=== PATIENT | male | born 1985 ===

== ENCOUNTER 2016-12-28 03:26 | Observation (INO) | payer OTHER ==
[~2016-12-28] VITALS: Ht 167.6 cm; Wt 63.5 kg
[2016-12-28] VITALS (8 sets, daily range): BP systolic 111–120; BP diastolic 68–79
--- NOTE | 2016-12-28 04:38 | DIAGNOSTIC IMAGING REPORT ---
PROCEDURE: XR ABDOMEN 1 VIEW UPRIGHT INDICATION: ABDOMINAL PAIN TECHNIQUE: AP upright view. COMPARISON: None. FINDINGS: There are mildly prominent nondilated small bowel loops with a few air-fluid levels in the left abdomen. No evidence of free air. Mild dextroscoliosis of the lumbar spine. IMPRESSION: 1. There are fluid levels in nondilated small bowel left abdomen. While this may be normal, consider developing ileus or enteritis.
--- NOTE | 2016-12-28 08:14 | ED ORDER SUMMARY ---
..... Patient: BENSON BOWIE OrderSheet [facility] VisitID: [id number] [place] [address] 31y, M Registration Date/Time: 12/28/2016 ORDER SHEET Weight: 63.5 kg (stated) Allergies: Shrimp GENERAL ORDERS: UA-Culture if indicated Urgent (03:49 12/28/2016 Umu R.NTate verbal order read back to Anna BERMEO) (3:49 Umu R.N.) Abdomen 1V Upright Urgent (04:00 12/28/2016 Anna BERMEO) (Ack 4:09 Umu Tsang.N.) (4:28 RFay) CBC w Diff Urgent (04:29 12/28/2016 Anna BERMEO) (5:02 Ralph Tsang.N.) CMP Urgent (04:29 12/28/2016 Anna BERMEO) (5:02 Ralph Tsang.N.) Amylase Urgent (04:29 12/28/2016 Anna BERMEO) (5:02 Ralph Tsang.N.) Lipase Urgent (04:29 12/28/2016 Anna BERMEO) (5:02 Ralph Tsang.N.) CT Abd/Pel w Cont (No) (N/A) Urgent (05:44 12/28/2016 Anna BERMEO) (Ack 5:50 Umu R.N.) (Cancelled: Allergy6:06 Umu R.NTate) CT Abd/Pel wo Cont Urgent (06:05 12/28/2016 Umu Tsang.NTate verbal order read back to Anna BERMEO) (Ack 6:06 Umu R.NTate) (6:16 RFay) MEDICATION ORDERS: Tylenol PO 1,000 mg (NOW) (08:11 12/28/2016 MWinterfrances R.NTate verbal order read back to Anna BERMEO) (8:11 MWinterer R.N.) IV FLUIDS: IV NS : initial bolus 500 mL (1000 mL/hr), then 150 mL/hr for 4h (NOW); Routine (04:29 12/28/2016 Anna BERMEO) (5:04 Ralph Tsang.NTate) Invanz IV 1 gm (NOW) (08:12 12/28/2016 Anna BERMEO) (Ack 8:16 Javed R.N.) (8:43 Javed R.N.) IV Lactated Ringers : initial bolus none -, then 125 mL/hr (NOW) (08:32 12/28/2016 Frandy Chance written order Bibiana BERMEO) (8:36 Frandy R.N.) Famotidine IV 20 mg/50mL (NOW) (08:33 12/28/2016 Frandy Chance written order Bibiana BERMEO) (8:44 Javed R.N.) Zofran IV 4 mg (PRN nausea) (08:34 12/28/2016 Frandy Chance written order Bibiana BERMEO) (8:44 Javed R.N.) ORDER SHEET NOTES: [Electronically signed by Deanne Nevarez R.N. (12:15 12/28/2016)] [Electronically signed by Tuan Rodríguez MD (23:13 12/28/2016)] [Electronically locked/signed by Deanne Nevarez R.N. (12:15 12/28/2016)]
--- NOTE | 2016-12-28 08:14 | DIAGNOSTIC IMAGING REPORT ---
PROCEDURE: CT ABDOMEN/PELVIS W/O CONTRAST INDICATION: Lower abdominal pain. TECHNIQUE: Noncontrast axial images with sagittal and coronal reformations. Intravenous contrast not utilized (reported shellfish allergy). COMPARISON: None. FINDINGS: ABDOMEN: Moderate inflammatory changes of the appendix with radiopaque material (probable appendicolith). Associated mild distention of the distal small bowel loops consistent with ileus. There is radiopaque ingested material in the distal small bowel, right and transverse colon (antacids versus bismuth). Moderate fatty infiltration of the liver. Gallbladder, liver, spleen, pancreas, kidneys, and aorta are normal. Bowel pattern is normal, including appendix. PELVIS: Pelvic structures are normal. Small amount of free fluid. IMPRESSION: 1. Moderate inflammatory changes surrounding appendix with probable consistent with acute appendicitis. 2. Associated small amount of free fluid in the pelvis. 3. Associated local ileus. 4. Moderate fatty infiltration of the liver. 5. Findings discussed with Dr. Tuan Rodríguez. All CT scans at this facility use dose modulation, iterative reconstruction, and/or weight-based dosing when appropriate to reduce radiation dose to as low as reasonably achievable.
--- NOTE | 2016-12-28 08:14 | ED CLINICAL REPORT ---
Clinical Report - Physicians/Mid Levels [facility] [address] [place] [address] 12/28/2016 3:27 Patient: BENSON BOWIE Time Seen: 03:52 Dec 28 2016. Arrived- By private vehicle. Historian- patient. CPT: ER phys charges level 5 (#[id number]). HISTORY OF PRESENT ILLNESS Chief Complaint: ABDOMINAL PAIN. At its maximum, severity described as moderate. When seen in the E.D., severity described as moderate. Modifying factors- worsened by movement. Relieved by rest. It is described as "pain" and it is described as located in the right lower quadrant and in the lower abdomen. This started yesterday ABDOMINAL PAIN and (Vomited once yesterday, drank a bunch of water, felt better at midnight. Woke up half an hour ago feeling the pain but in his groin/suprapubic area. Aggravating factors: moving; Alleviating factors: staying still.). This started today. He has had vomiting (yesterday). The vomiting has occurred only once. He has had cramping, constant abdominal pain. The pain is described as located in the suprapubic region and difficulty with urination. He has had constipation (Last Bowel Movement 2 days ago). No chills, fever, sweating episodes, black stools or bloody stools. No diarrhea, flank pain, genital lesions, hematuria or inguinal swelling. No pelvic pain or scrotal discomfort. He has not had fatigue or an exposure to a sexually transmitted disease. Denies muscle aches or poor appetite. Last oral intake by patient was snack yesterday. and is still present. The patient has had nausea. He has had mild vomiting (yesterday). The vomiting has occurred only once. Similar symptoms previously: Once, as bad (yesterday). ( Went away after drinking a bunch of water.). Recent medical care: Not recently seen/assessed. REVIEW OF SYSTEMS The patient has had constipation. No black stools, hematemesis, difficulty with urination, pain with urination or urinary frequency. No fever, sore throat or throat, chest pain or difficulty breathing. No cough, joint pain, skin rash, chills or diabetic symptoms. No easy bruising. All systems otherwise negative, except as recorded above. PAST HISTORY No history of peptic ulcer. No history of gallstones, bowel obstruction, GI disease or diabetes mellitus. Has not had urinary calculi. Medications: None. Allergies: Shrimp. SOCIAL HISTORY Never smoker. No alcohol use or drug use. ADDITIONAL NOTES The nursing notes have been reviewed. PHYSICAL EXAM Vital Signs: 12/28/2016 03:41 BP: 144/82. HR: 104. RR: 18. O2 saturation: 100%. Temp: 101.1 F. Pain level now: 810. Appearance: Alert. Appears to be in pain. Patient in moderate distress. Eyes: Eyes normal inspection. ENT: Pharynx normal. Neck: Normal inspection. Neck supple. CVS: Normal heart rate and rhythm. Heart sounds normal. Pulses normal. Respiratory: No respiratory distress. Breath sounds normal. Chest nontender. Abdomen: Soft. Moderate tenderness in the right side of the abdomen and right lower quadrant. Abnormal bowel sounds: diminished. Back: Normal inspection. Skin: Skin warm. Normal skin color. No rash. Extremities: Extremities exhibit normal ROM. No lower extremity edema. Neuro: Oriented X 3. No motor deficit. No sensory deficit. Reflexes normal. LABS, X-RAYS, AND EKG KUB: (Early gastroenteritis. Air-fluid levels left abdomen.). Views: erect AP. Technique: good. The X-rays were independently viewed by me and interpreted contemporaneously by me. Prior films were not available for comparison. Abdominal CT: Free fluid is present. Fatty liver present. There is evidence of appendicitis. Abdominal CT performed with IV contrast. The study was independently viewed by me, interpreted by the radiologist and discussed with the radiologist. Laboratory Tests: UA-Culture if indicated: (KELSEY: 12/28/2016 03:40) ( MsgRcvd 12/28/2016 04:01) Final results Test Result Flag Units (Reference) URINE COLOR YELLOW URINE APPEARANCE CLEAR URINE GLUCOSE NEGATIVE (NEGATIVE) URINE BILIRUBIN NEGATIVE (NEGATIVE) URINE KETONE NEGATIVE (NEGATIVE) URINE SPECIFIC GRAVITY 1.020 (1.010-1.030) URINE PH 7.0 (5.0-8.0) URINE PROTEIN NEGATIVE (NEGATIVE) URINE UROBILINOGEN 0.2 EU/dL (0.2-1.0) URINE NITRITE NEGATIVE (NEGATIVE) URINE BLOOD NEGATIVE (NEGATIVE) URINE LEUK ESTERASE NEGATIVE (NEGATIVE) URINE RBC 0-1 rbc/hpf (0-1) URINE WBC 0-1 wbc/hpf (0-1) URINE EPITHELIAL CELLS NONE SEEN EPI/hpf (0-5) URINE BACTERIA NONE SEEN (NONE SEEN) URINE COMMENT CULT NOT INDICATED URINE CULTURES ARE SET-UP BASED ON THE FOLLOWING CRITERIA:POSITIVE NITRITEPOSITIVE LEUKOCYTE ESTERASEGREATER THAN 10 WHITE BLOOD CELLSMODERATE (2+) OR GREATER BACTERIA . PROGRESS AND PROCEDURES Course of Care: IV NS Zofran 4 mg IV Invanz 1g IV. Discussed case with on-call health care provider, ([facility]). Reviewed test results. Agreed upon treatment plan and decision to admit. Health care provider will see patient in ED. Patient/family counseled. Old medical records ordered. Disposition orders written. Disposition: Admitted to Acute Care. CLINICAL IMPRESSION Acute appendicitis with localized peritonitis. Fever. (Electronically signed by Tuan Rodríguez MD 12/28/2016 23:13)
--- NOTE | 2016-12-28 08:14 | ED ORDER SUMMARY ---
..... Patient: BENSON BOWIE OrderSheet [facility] VisitID: [id number] [place] [address] 31y, M Registration Date/Time: 12/28/2016 ORDER SHEET Weight: 63.5 kg (stated) Allergies: Shrimp GENERAL ORDERS: UA-Culture if indicated Urgent (03:49 12/28/2016 Umu R.NTate verbal order read back to Anna BERMEO) (3:49 Umu R.N.) Abdomen 1V Upright Urgent (04:00 12/28/2016 Anna BERMEO) (Ack 4:09 Umu Tsang.N.) (4:28 RFay) CBC w Diff Urgent (04:29 12/28/2016 Anna BERMEO) (5:02 Ralph Tsang.N.) CMP Urgent (04:29 12/28/2016 Anna BERMEO) (5:02 Ralph Tsang.N.) Amylase Urgent (04:29 12/28/2016 Anna BERMEO) (5:02 Ralph Tsang.N.) Lipase Urgent (04:29 12/28/2016 Anna BERMEO) (5:02 Ralph Tsang.N.) CT Abd/Pel w Cont (No) (N/A) Urgent (05:44 12/28/2016 Anna BERMEO) (Ack 5:50 Umu R.N.) (Cancelled: Allergy6:06 Umu R.NTate) CT Abd/Pel wo Cont Urgent (06:05 12/28/2016 Umu Tsang.NTate verbal order read back to Anna BERMEO) (Ack 6:06 Umu R.NTate) (6:16 RFay) MEDICATION ORDERS: Tylenol PO 1,000 mg (NOW) (08:11 12/28/2016 MWinterfrances R.NTate verbal order read back to Anna BERMEO) (8:11 MWinterer R.N.) IV FLUIDS: IV NS : initial bolus 500 mL (1000 mL/hr), then 150 mL/hr for 4h (NOW); Routine (04:29 12/28/2016 Anna BERMEO) (5:04 Ralph Tsang.NTate) Invanz IV 1 gm (NOW) (08:12 12/28/2016 Anna BERMEO) (Ack 8:16 Javed R.N.) (8:43 Javed R.N.) IV Lactated Ringers : initial bolus none -, then 125 mL/hr (NOW) (08:32 12/28/2016 Frandy Chance written order Bibiana BERMEO) (8:36 Frandy R.N.) Famotidine IV 20 mg/50mL (NOW) (08:33 12/28/2016 Frandy Chance written order Bibiana BERMEO) (8:44 Javed R.N.) Zofran IV 4 mg (PRN nausea) (08:34 12/28/2016 Frandy Chance written order Bibiana BERMEO) (8:44 Javed R.N.) ORDER SHEET NOTES: [Electronically signed by Deanne Nevarez R.N. (12:15 12/28/2016)] [Electronically signed by Tuan Rodríguez MD (23:13 12/28/2016)] [Electronically locked/signed by Deanne Nevarez R.N. (12:15 12/28/2016)]
--- NOTE | 2016-12-28 08:14 | ED NURSING NOTES ---
Clinical Report - Nurses [facility] [address] [place] [address] 12/28/2016 3:27 Patient: BENSON BOWIE TRIAGE Triage time 03:41. Acuity: LEVEL 4. Chief Complaint: ABDOMINAL PAIN and (Vomited once yesterday, drank a bunch of water, felt better at midnight. Woke up half an hour ago feeling the pain but in his groin/suprapubic area. Aggravating factors: moving; Alleviating factors: staying still.). Alert. No acute distress. --03:47 Prabhu Menjivar R.N. 03:41 12/28/16. BP: 144/82 (regular adult cuff) taken on the left arm, via an automated monitor, while sitting. HR: 104 (tachycardic). RR: 18 (regular, unlabored and normal). O2 saturation: 100% on room air. Temp: 101.1 F (oral). Pain level now: 07/09. --03:47 Prabhu Menjivar R.N. Weight: 63.5 kg stated. Height/Length: 66 inches Per Patient. BMI: 22.6. --03:42 Prabhu Menjivar R.N. Medications None. --03:43 Prabhu Menjivar R.N. Medication/allergy information source: the patient. --03:47 Prabhu Menjivar R.N. Allergies Shrimp. --03:43 Prabhu Menjivar R.N. History Arrived by private vehicle. Historian: patient. Unaccompanied. This started today. He has had vomiting (yesterday). The vomiting has occurred only once. He has had cramping, constant abdominal pain. The pain is described as located in the suprapubic region and difficulty with urination. He has had constipation (Last Bowel Movement 2 days ago). No chills, fever, sweating episodes, black stools or bloody stools. No diarrhea, flank pain, genital lesions, hematuria or inguinal swelling. No pelvic pain or scrotal discomfort. He has not had fatigue or an exposure to a sexually transmitted disease. Denies muscle aches or poor appetite. Last oral intake by patient was snack yesterday. 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 PAST MEDICAL HX: Immunizations: up-to-date. SOCIAL HX: Never smoker. No alcohol use or drug use. He has not traveled outside the [place] The patient was not exposed to MRSA. No infectious disease exposure. ABUSE ASSESSMENT: Abuse assessment: The patient was asked "Do you feel safe in your home?" and "Has anyone hurt you or threatened to hurt you?". No report of abuse. SELF HARM ASSESSMENT: A self harm assessment was performed. The patient answered "no" to the question "Do you have thoughts of harming or killing yourself?" and "Have you recently had thoughts about harming or killing others?". FALL RISK ASSESSMENT: Fall risk assessment completed. No fall risk identified. NUTRITIONAL RISK ASSESSMENT: The nutritional risk assessment revealed no deficiencies. LEARNING NEEDS ASSESSMENT: The learning needs assessment revealed no barriers. FUNCTIONAL ASSESSMENT: Functional assessment performed: wears glasses- this visual impairment is an ongoing problem. SKIN INTEGRITY ASSESSMENT: Skin integrity risk assessment completed. No skin integrity risk identified. --03:47 Prabhu Menjivar R.N. PROBLEMS: Paronychia. --03:43 Prabhu Menjivar R.N. Assessment GENERAL / NEURO / PSYCH: Alert. Oriented X 4. Appears in no acute distress. Gary Coma Scale: 15- eyes open spontaneously (4); best verbal response- oriented x 4 (5); best motor response- obeys commands (6). Patient appears calm and cooperative. RESPIRATORY: Respirations not labored. SKIN: Skin is warm and dry. --03:47 Prabhu Menjivar R.N. Interventions ID band on patient. Patient ID band checked for patient name and birthdate: patient confirmed. Instructions provided to collect clean catch urine and patient verbalized understanding. Clean catch urine collected with return of zari-colored cloudy urine; sample sent to lab for urinalysis. Specimen labeled in the presence of the patient. To treatment room. Report given to the primary nurse. EVARISTO [place]. --03:47 Prabhu Menjivar R.N. NURSING PROGRESS NOTES The initial plan of care for this patient has been created This plan of care was discussed with the patient. Pulse oximeter and NIBP monitor placed on patient. Patient gowned. Warming measures: blanket applied. Reassurance given to the patient. Two patient identifiers checked. Call light placed in reach. Side rails up x 1. Bed placed in lowest position. Brakes of bed on. Patient ready for evaluation- ED physician notified. --03:48 Prabhu Menjivar R.N. 05:00 12/28/2016 Site #1 started via IV in the right antecubital space with an 20g angiocath, with aseptic technique and good blood return; one attempt. Blood drawn: rainbow set. Labeled in the presence of the patient and sent to the lab. Saline lock flushed with 10 mL saline. --05:03 Perico Pimentel R.N. 05:00 12/28/2016 Started bag #1 1000 mL IV Fluids IV NS (Saline); bolus of 500 mL over 30 minute(s) then at 150 mL/hr over 3 hour(s) via site #1 via IV pump. Allergies verified and confirmed 5 rights. IV patency established. IV site checked: no pain, redness, or swelling. IV flushed thoroughly pre- and post-medication administration. --05:04 Perico Pimentel R.N. 06:50 12/28/2016 IV Fluids IV NS via IV site #1 Rate Changed: bag #1 decreased to 150 mL/hr. IV patency established. IV site checked: no pain, redness, or swelling. IV flushed thoroughly. --07:16 Deanne Nevarez R.N. 07:56 12/28/16. BP: 118/64. HR: 122. RR: 12. O2 saturation: 100% on room air. Temp: 102.4 F (oral). Pain level now: 01/09. --07:57 Deanne Nevarez R.N. 08:06 12/28/2016 Tylenol (Acetaminophen) PO 1000 mg given. Allergies verified and confirmed 5 rights. --08:11 Deanne Nevarez R.N. 08:15 12/28/2016 IV Fluids IV NS Discontinued: bag #1 discontinued. Total amount infused: 800 mL. IV patency established. IV site checked: no pain, redness, or swelling. IV flushed thoroughly. --12:15 Deanne Nevarez R.N. 08:31 12/28/2016 Started bag #1 1000 mL IV Fluids IV LACTATED RINGERS; at 125 mL/hr over 8 hour(s) via site #1 via IV pump. Allergies verified and confirmed 5 rights. IV patency established. IV site checked: no pain, redness, or swelling. IV flushed thoroughly pre- and post-medication administration. Completed per protocol. --08:36 Leonela Menchaca R.N. <<STRICKEN ENTRY-- 08:32 12/28/2016 Invanz IVP 1 gm given over 20 minute(s) via site #1. Allergies verified and confirmed 5 rights. IV patency established. IV site checked: no pain, redness, or swelling. IV flushed thoroughly pre- and post-medication administration. IVP given by RN. --08:42 Deanne Nevarez R.N. --END STRIKE>> Correction. --08:43 Deanne Nevarez R.N. 08:33 12/28/2016 Started 1 gm of Invanz IVPB in bag #1 50 mL; at 150 mL/hr over 20 minute(s) via site #1 via IV pump. Allergies verified and confirmed 5 rights. IV patency established. IV site checked: no pain, redness, or swelling. IV flushed thoroughly pre- and post-medication administration. --08:43 Deanne Nevarez R.N. 08:39 12/28/2016 Zofran (Ondansetron HCl) IVP 4 mg given over 1 minute(s) via site #1. Allergies verified and confirmed 5 rights. IV patency established. IV site checked: no pain, redness, or swelling. IV flushed thoroughly pre- and post-medication administration. IVP given by RN. --08:44 Deanne Nevarez R.N. 08:44 12/28/2016 Started 20 mg of Famotidine IVPB in bag #1 50 mL; at 100 mL/hr over 30 minute(s) via site #1 via IV pump. Allergies verified and confirmed 5 rights. IV patency established. IV site checked: no pain, redness, or swelling. IV flushed thoroughly pre- and post-medication administration. --08:44 Deanne Nevarez R.N. 09:00 12/28/2016 Invanz IVPB Discontinued: bag #1 infused. Total amount infused: 50 mL. IV patency established. IV site checked: no pain, redness, or swelling. IV flushed thoroughly. --09:00 Deanne Nevarez R.N. 09:06 12/28/2016 Famotidine IVPB Discontinued: bag #1 infused. Total amount infused: 50 mL. IV patency established. IV site checked: no pain, redness, or swelling. IV flushed thoroughly. --09:06 Deanne Nevarez R.N. DISPOSITION / DISCHARGE Admitted via Surgery. Transported via stretcher by nurse. Bed obtained (203A). Patient's personal items include: shirt, pants, coat, socks, shoes, glasses and cell phone; items were placed in belongings bag and transported with the patient. --09:30 Deanne Nevarez R.N. Departure time: 09:15 Dec 28 2016. --09:31 Deanne Nevarez R.N. 12:10 12/28/16. BP: 118/62. HR: 132. RR: 18. O2 saturation: 100% on room air. Temp: 100 F. --12:11 Deanne Nevarez R.N. 09:00 12/28/2016 Site #[address] upon admission; patent, no pain and no signs of infection or infiltration. --12:13 Deanne Nevarez R.N. 09:00 12/28/2016 IV Fluids IV LACTATED RINGERS Continued: upon admission at the rate of 125 mL/hr. 900 mL remaining bag #1. IV patency established. IV site checked: no pain, redness, or swelling. IV flushed thoroughly. --12:13 Deanne Nevarez R.N. Locked/Released at 12/28/2016 12:15 by Deanne Nevarez R.N.
[2016-12-28] MEDS ORDERED: HYCET1 ML PO (09:55)
--- NOTE | 2016-12-28 09:56 | Provider's Discharge Care Plan ---
Problem, Goal, Plan Problem List 1. S/P laparoscopic appendectomy Goals: Improve disease control, Therapeutic intervention Instructions: Follow up as directed, Take meds as directed
--- NOTE | 2016-12-28 09:56 | Provider's Discharge Care Plan ---
Problem, Goal, Plan Problem List 1. S/P laparoscopic appendectomy Goals: Improve disease control, Therapeutic intervention Instructions: Follow up as directed, Take meds as directed
--- NOTE | 2016-12-28 10:15 | NUR ---
PATIENT INTERVIEWED IN THE PREOP AREA. PT ID AND PROCEDURE CONFIRMED PT QUESTIONS ASKED AND ANSWERED. PT INDICATED UNDERSTANDING OF THE PROCEDURE AND ORDER OF EVENTS TO TAKE PLACE.
--- NOTE | 2016-12-28 11:07 | NUR ---
PATIENT ARRIVED TO PACU AT 1055. SPONT RESP. VITALS STABLE. DRESSINGS TO ABDOMEN CLEAN, DRY AND INTACT. IV ACETAMINOPHEN INFUSING NOW. WILL CONTINUE TO MONITOR.
--- NOTE | 2016-12-28 11:20 | NUR ---
PATIENT DENIES PAIN OR NAUSEA AT THIS TIME. VITALS REMAIN STABLE. FAMILY AND FRIENDS AT BEDSIDE. . WILL CONTINUE TO MONITOR.
--- NOTE | 2016-12-28 11:53 | NUR ---
1140- pt arrived to 203-a from OR. slightly tachy, hr 113, otherwise VSS. pt denies pain, n/v at this time. oriented to unit. call light in reach.
--- NOTE | 2016-12-28 13:17 | CONSULTATION REPORT ---
DATE OF CONSULTATION: 12/28/2016 CHIEF COMPLAINT: Right lower quadrant abdominal pain HISTORY OF PRESENT ILLNESS: A 31-year-old male, 18-hour history of progressive right lower quadrant abdominal pain, states that it hurts whenever he coughs. He has had no nausea, but vomited one time prior to arrival in the emergency room. No diarrhea , no prior abdominal complaints. MEDICAL/SURGICAL HISTORY: Soft tissue mass excised, left lateral thigh as an outpatient. The patient states it has recurred. MEDICATIONS: 1. None. ALLERGIES: 1. SHRIMP. SOCIAL HISTORY: He is single. He has no children. He does not smoke, does not drink alcohol, drinks 32 ounces of coffee twice a week and does not use recreational drugs. 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 FAMILY HISTORY: Mother is age 60, history of hypertension. Father is age 61, in good health. One brother in good health. REVIEW OF SYSTEMS: The patient denies any history of hepatitis, jaundice, rheumatic fever, heart murmurs requiring antibiotics or blood transfusion. Because of caodaism beliefs, he does not accept blood transfusions. The remaining 12-point review of systems is negative. PHYSICAL EXAMINATION: GENERAL: The patient is awake, alert, conversant and does not appear to be in any acute distress. VITAL SIGNS: Blood pressure 144/82, pulse 104, respirations 18, temperature is 101.1. HEENT: Normocephalic, atraumatic. Pupils equal and reactive. No scleral icterus. External auditory canals clear. No nasal septal defect or discharge. Moist mucous membranes. Throat is clear. NECK: Supple. No JVD, carotid bruit or adenopathy. LUNGS: Clear. No rales, rhonchi, or wheezing. HEART: Regular. No murmurs. ABDOMEN: Nondistended. Negative bowel sounds. Positive tenderness to deep palpation in right lower quadrant. No masses appreciable. EXTREMITIES: Full range of motion actively and passively. No particular ankle edema. SKIN: Warm and dry with no peripheral cyanosis. LYMPHATICS: No cervical, supraclavicular, axillary, or groin adenopathy. NEUROLOGIC: The patient is grossly intact with no focal motor neurological deficits. LAB/IMAGING: White count 14.6, hemoglobin and hematocrit, 15.5 and 45.9, respectively. Electrolytes: Sodium 136, chloride 98, potassium 3.5, bicarbonate 27, glucose 117, BUN 10, creatinine 0.9, lipase 85. Review of the CAT scan shows the patient has hyperemic, edematous, thickened appendix consistent with early appendicitis and appendicolith. IMPRESSION: 1. Early appendicitis. PLAN: Laparoscopic appendectomy. The procedure has been explained to the patient including the potential risks and benefits, but not exclusive of incisional hernia, incisional infection, intra-abdominal abscess postoperatively, damage to local structures. The patient understands and agrees to proceed and all questions answered to his satisfaction. We will schedule him for emergency surgery.
--- NOTE | 2016-12-28 13:17 | CONSULTATION REPORT ---
DATE OF CONSULTATION: 12/28/2016 CHIEF COMPLAINT: Right lower quadrant abdominal pain HISTORY OF PRESENT ILLNESS: A 31-year-old male, 18-hour history of progressive right lower quadrant abdominal pain, states that it hurts whenever he coughs. He has had no nausea, but vomited one time prior to arrival in the emergency room. No diarrhea , no prior abdominal complaints. MEDICAL/SURGICAL HISTORY: Soft tissue mass excised, left lateral thigh as an outpatient. The patient states it has recurred. MEDICATIONS: 1. None. ALLERGIES: 1. SHRIMP. SOCIAL HISTORY: He is single. He has no children. He does not smoke, does not drink alcohol, drinks 32 ounces of coffee twice a week and does not use recreational drugs. 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 FAMILY HISTORY: Mother is age 60, history of hypertension. Father is age 61, in good health. One brother in good health. REVIEW OF SYSTEMS: The patient denies any history of hepatitis, jaundice, rheumatic fever, heart murmurs requiring antibiotics or blood transfusion. Because of sikh beliefs, he does not accept blood transfusions. The remaining 12-point review of systems is negative. PHYSICAL EXAMINATION: GENERAL: The patient is awake, alert, conversant and does not appear to be in any acute distress. VITAL SIGNS: Blood pressure 144/82, pulse 104, respirations 18, temperature is 101.1. HEENT: Normocephalic, atraumatic. Pupils equal and reactive. No scleral icterus. External auditory canals clear. No nasal septal defect or discharge. Moist mucous membranes. Throat is clear. NECK: Supple. No JVD, carotid bruit or adenopathy. LUNGS: Clear. No rales, rhonchi, or wheezing. HEART: Regular. No murmurs. ABDOMEN: Nondistended. Negative bowel sounds. Positive tenderness to deep palpation in right lower quadrant. No masses appreciable. EXTREMITIES: Full range of motion actively and passively. No particular ankle edema. SKIN: Warm and dry with no peripheral cyanosis. LYMPHATICS: No cervical, supraclavicular, axillary, or groin adenopathy. NEUROLOGIC: The patient is grossly intact with no focal motor neurological deficits. LAB/IMAGING: White count 14.6, hemoglobin and hematocrit, 15.5 and 45.9, respectively. Electrolytes: Sodium 136, chloride 98, potassium 3.5, bicarbonate 27, glucose 117, BUN 10, creatinine 0.9, lipase 85. Review of the CAT scan shows the patient has hyperemic, edematous, thickened appendix consistent with early appendicitis and appendicolith. IMPRESSION: 1. Early appendicitis. PLAN: Laparoscopic appendectomy. The procedure has been explained to the patient including the potential risks and benefits, but not exclusive of incisional hernia, incisional infection, intra-abdominal abscess postoperatively, damage to local structures. The patient understands and agrees to proceed and all questions answered to his satisfaction. We will schedule him for emergency surgery.
--- NOTE | 2016-12-28 13:19 | OPERATIVE REPORT ---
DATE OF SURGERY: 12/28/2016 SURGEON: Jac Gorman III, MD ASSISTANT MEN'S LACROSSE COACH: None. PREOPERATIVE DIAGNOSIS: 1. Acute appendicitis POSTOPERATIVE DIAGNOSIS: 1. Acute appendicitis PROCEDURE PERFORMED: 1. Laparoscopic appendectomy ANESTHESIA: General endotracheal. INDICATIONS: The patient is a 31-year-old male with 18-hour history of progressive right lower quadrant pain, white count 14.6. CT consistent with early appendicitis and appendicolith. On physical examination he was noted to have localized tenderness in the right lower quadrant. SURGICAL FINDINGS: The patient was noted to have a pericecal early appendicitis. SURGICAL TECHNIQUE: The patient was brought to the operating room and placed in the dorsal supine position where he was administered general endotracheal anesthesia by the anesthesiology department. After proper anesthesia had taken effect, the patient 's abdomen was prepped using ChloraPrep and draped in a sterile fashion. An infraumbilical incision made, carried down through skin and subcutaneous tissue. A Veress needle was inserted through this site, into the abdominal cavity and after ascertaining its appropriate position, with suction irrigation, pneumoperitoneum obtained using CO2 insufflation to approximately 14-15 mmHg pressure. Once this pressure was reached, the Veress needle was removed and replaced with a 10 mm trocar. The trocar was removed, leaving the sleeve behind, through which a laparoscopic video camera was introduced into the abdominal cavity. Under direct visualization, a separate 5 mm trocar was placed in the suprapubic region and a 10 mm trocar was placed in the left lower quadrant. Each entered the abdominal cavity under direct visualization. Trocars were removed, leaving the sleeve behind, through which laparoscopic instrumentation was introduced into the abdominal cavity. The appendix in the pericecal region was identified, mobilized using blunt dissection and the Thunderbeat. The mesoappendix was taken down using the Thunderbeat. The base of the appendix was clipped in continuity using the Hem-o-Loks. The base of the appendix was then transected using EndoShears and the appendix was placed in a sterile specimen container bag and retrieved from the abdominal cavity and sent to pathology. The appendiceal mucosal stump was cauterized using the Thunderbeat. The right lower quadrant was irrigated with warm normal saline and antibiotic solution and the irrigant suctioned out. Hemostasis was assured. Approximately 30 mL of 0.5% Marcaine with epinephrine was sprayed over the right and left dome of the liver for postoperative analgesia. The pneumoperitoneum was released. All trocars were removed from the abdominal cavity. All trocar sites were approximated using 4-0 subdermal Polysorb and Steri-Strips. A sterile pressure occlusive dressing was placed over each site. The patient tolerated the procedure well, was extubated and transferred to the recovery room in stable condition. There were no intraoperative or anesthetic complications.
--- NOTE | 2016-12-28 18:00 | NUR ---
Pt has been manas clear liquid diet well. BTx4, abd softly distended. Denies nausea, pain, or SOB. HR has been above 100 even at rest. Notified , and stated as long as pt is asymptomatic, pt may be discharged. Pt denies palpatations and is aysmptomatic at all times. Otherwise VSS, pt voided multiple times, and pt met the discharge critria. Went over discharge plan and answered all questions. instructed him to call to make appointment tomorrow am. Changed the mid trocar site since it was soaked in blood. DC'd IV. PT was escorted out at 1800.
--- NOTE | 2016-12-28 23:13 | ED DISCHARGE INSTRUCTIONS ---
Patient: BENSON BOWIE General Instructions [facility] VisitID: [id number] [place] [address] 31y, M Registration Date/Time: 12/28/2016 Acute appendicitis with localized peritonitis. Fever. ADDITIONAL INFORMATION Abdominal Pain, Possible Appendicitis, Repeat Exam, Male Based on your visit today, the exact cause of your abdominal (stomach) pain is not certain. However, you do have some of the early signs of appendicitis. Early in an appendix infection the symptoms can be similar to a simple "stomach ache" or "stomach flu". Therefore, the diagnosis can be hard to make.Since an appendix infection is a serious condition, it is important to know if this is the cause of your symptoms. WAITING for more time to pass and repeating the exam is the best way to find out whether you have appendicitis. Within the next 12-24 hours the cause of your stomach pain should become clear. It is important for you to watch for any new symptoms or worsening of your condition.(See below). Home Care: Rest until your next exam. No strenuous activities. Eat a diet low in fiber (called a low-residue diet). Foods allowed include refined breads, white rice, fruit and vegetable juices without pulp, tender meats. These foods will pass more easily through the intestine. Avoid whole-grain foods, whole fruits and vegetables, meats, seeds and nuts, fried or fatty foods, dairy, alcohol and spicy foods until your symptoms go away. In some cases, you may be asked not to eat or drink anything until you are re-examined. Return for another exam exactly as directed. Follow Up with your doctor or this facility as directed. [NOTE: If you had an X-ray, CT scan, ultrasound, or EKG (cardiogram), it will be reviewed by a specialist. You will be notified of any new findings that may affect your care.] Return Promptly before your next appointment or contact your doctor if any of the following occur: Pain gets worse or moves to the right lower abdomen New or worsening vomiting or diarrhea Swelling of the abdomen Unable to pass stool for more than three days New fever over 100.4 F (38.0 C), or rising fever Blood in vomit or bowel movements (dark red or black color) Weakness, dizziness or fainting You have been given the following additional information: Abdominal Pain, Possible Appendicitis [Male] (Electronically signed by Tuan Rodríguez MD 12/28/2016 23:13)
--- NOTE | 2016-12-28 23:13 | ED MAR SUMMARY ---
..... Medication Administration Record [facility] [address] [place] [address] Patient: BENSON BOWIE Visit ID: [id number] 31y, M Weight: 63.5 kg Height/Length: 66 in BMI: 22.6 ALLERGIES: Shrimp Start 05:00 12/28/2016 Perico Pimentel R.N., Stop 08:15 12/28/2016 Deanne Nevarez R.N. Medication Administered: IV NS (SALINE), Dose: IV Fluids over 3 hour(s), Rate: 150 mL/hr, Bolus: 500 mL over 30 minute(s), Dispensed: 1000 mL bag, Site: #1 right AC. Medication Ordered: IV NS : initial bolus 500 mL (1000 mL/hr), then 150 mL/hr for 4h (NOW); Routine. Given 08:06 12/28/2016 Deanne Nevarez R.N. Medication Administered: TYLENOL [PO] (ACETAMINOPHEN), Dose: 1000 mg PO. Medication Ordered: Tylenol PO 1,000 mg (NOW). Start 08:31 12/28/2016 Leonela Menchaca R.N., Continued Upon Admission 09:00 12/28/2016 Deanne Nevarez R.N. Medication Administered: IV LACTATED RINGERS, Dose: IV Fluids over 8 hour(s), Rate: 125 mL/hr, Dispensed: 1000 mL bag, Site: #1 right AC. Medication Ordered: IV Lactated Ringers : initial bolus none -, then 125 mL/hr (NOW). Start 08:33 12/28/2016 Deanne Nevarez R.N., Stop 09:00 12/28/2016 Deanne Nevarez R.N. Medication Administered: INVANZ [IVPB], Dose: 1 gm IVPB over 20 minute(s), Rate: 150 mL/hr, Dispensed: 50 mL bag, Site: #1 right AC. Medication Ordered: Invanz IV 1 gm (NOW). Given 08:39 12/28/2016 Deanne Nevarez R.N. Medication Administered: ZOFRAN [IVP] (ONDANSETRON HCL), Dose: 4 mg IVP over 1 minute(s), Site: #1 right AC. Medication Ordered: Zofran IV 4 mg (PRN nausea). Start 08:44 12/28/2016 Deanne Nevarez, R.N., Stop 09:06 12/28/2016 Deanne Nevarez, R.N. Medication Administered: FAMOTIDINE [IVPB], Dose: 20 mg IVPB over 30 minute(s), Rate: 100 mL/hr, Dispensed: 50 mL bag, Site: #1 right AC. Medication Ordered: Famotidine IV 20 mg/50mL (NOW).
--- NOTE | 2016-12-28 23:13 | ED MAR SUMMARY ---
..... Medication Administration Record [facility] [address] [place] [address] Patient: BENSON BOWIE Visit ID: [id number] 31y, M Weight: 63.5 kg Height/Length: 66 in BMI: 22.6 ALLERGIES: Shrimp Start 05:00 12/28/2016 Perico Pimentel R.N., Stop 08:15 12/28/2016 Deanne Nevarez R.N. Medication Administered: IV NS (SALINE), Dose: IV Fluids over 3 hour(s), Rate: 150 mL/hr, Bolus: 500 mL over 30 minute(s), Dispensed: 1000 mL bag, Site: #1 right AC. Medication Ordered: IV NS : initial bolus 500 mL (1000 mL/hr), then 150 mL/hr for 4h (NOW); Routine. Given 08:06 12/28/2016 Deanne Nevarez R.N. Medication Administered: TYLENOL [PO] (ACETAMINOPHEN), Dose: 1000 mg PO. Medication Ordered: Tylenol PO 1,000 mg (NOW). Start 08:31 12/28/2016 Leonela Menchaca R.N., Continued Upon Admission 09:00 12/28/2016 Deanne Nevarez R.N. Medication Administered: IV LACTATED RINGERS, Dose: IV Fluids over 8 hour(s), Rate: 125 mL/hr, Dispensed: 1000 mL bag, Site: #1 right AC. Medication Ordered: IV Lactated Ringers : initial bolus none -, then 125 mL/hr (NOW). Start 08:33 12/28/2016 Deanne Nevarez R.N., Stop 09:00 12/28/2016 Deanne Nevarez R.N. Medication Administered: INVANZ [IVPB], Dose: 1 gm IVPB over 20 minute(s), Rate: 150 mL/hr, Dispensed: 50 mL bag, Site: #1 right AC. Medication Ordered: Invanz IV 1 gm (NOW). Given 08:39 12/28/2016 Deanne Nevarez R.N. Medication Administered: ZOFRAN [IVP] (ONDANSETRON HCL), Dose: 4 mg IVP over 1 minute(s), Site: #1 right AC. Medication Ordered: Zofran IV 4 mg (PRN nausea). Start 08:44 12/28/2016 Deanne Nevarez, R.N., Stop 09:06 12/28/2016 Deanne Nevarez, R.N. Medication Administered: FAMOTIDINE [IVPB], Dose: 20 mg IVPB over 30 minute(s), Rate: 100 mL/hr, Dispensed: 50 mL bag, Site: #1 right AC. Medication Ordered: Famotidine IV 20 mg/50mL (NOW).
--- NOTE | 2016-12-28 23:13 | ED MED RECONCILIATION SUMMARY ---
Patient: FRANCISCA BOWIEAS Medication Reconciliation Report [facility] VisitID: [id number] [address] [place] [address] 31y, M Registration Date/Time: 12/28/2016 Weight: 63.5 kg Height/Length: 66 in. BMI: 22.6 ALLERGIES: Shrimp The patient's Home Medications are listed below: NONE. The source(s) of the original Home Medication information: patient The following Medications were given to the patient in the Emergency Department: IV NS IV Fluids bolus 500 mL over 30 minute(s), then 150 mL/hr, administered: 12/28/2016 5:00:00 AM Tylenol [PO] PO 1000 mg, administered: 12/28/2016 8:06:00 AM IV LACTATED RINGERS IV Fluids bolus 0, then 125 mL/hr, administered: 12/28/2016 8:31:00 AM Invanz [IVPB] IVPB bolus 0, then 1 gm 150 mL/hr, administered: 12/28/2016 8:33:00 AM Famotidine [IVPB] IVPB bolus 0, then 20 mg 100 mL/hr, administered: 12/28/2016 8:44:00 AM Zofran [IVP] IVP 4 mg, administered: 12/28/2016 8:39:00 AM The following Medications were prescribed to the patient: None.
--- NOTE | 2016-12-28 23:13 | ED MED RECONCILIATION SUMMARY ---
Patient: FRANCISCA BOWIEAS Medication Reconciliation Report [facility] VisitID: [id number] [address] [place] [address] 31y, M Registration Date/Time: 12/28/2016 Weight: 63.5 kg Height/Length: 66 in. BMI: 22.6 ALLERGIES: Shrimp The patient's Home Medications are listed below: NONE. The source(s) of the original Home Medication information: patient The following Medications were given to the patient in the Emergency Department: IV NS IV Fluids bolus 500 mL over 30 minute(s), then 150 mL/hr, administered: 12/28/2016 5:00:00 AM Tylenol [PO] PO 1000 mg, administered: 12/28/2016 8:06:00 AM IV LACTATED RINGERS IV Fluids bolus 0, then 125 mL/hr, administered: 12/28/2016 8:31:00 AM Invanz [IVPB] IVPB bolus 0, then 1 gm 150 mL/hr, administered: 12/28/2016 8:33:00 AM Famotidine [IVPB] IVPB bolus 0, then 20 mg 100 mL/hr, administered: 12/28/2016 8:44:00 AM Zofran [IVP] IVP 4 mg, administered: 12/28/2016 8:39:00 AM The following Medications were prescribed to the patient: None.
== END 2016-12-28 18:05 | disposition home or self-care (01) ==
LOC: ED SRH 03:26 → TRANS SRH 08:23 → SDC SRH 08:23 → TRANS SRH 08:24 → SDC SRH 11:08 → ACUTE2 SRH 11:08
PROVIDERS: ADMIT Specialist
PROC: 0DTJ4ZZ Resection of Appendix, Percutaneous Endoscopic Approach (ICD-10-PCS; principal; 2016-12-28 09:30)
DX: K35.80 Unspecified acute appendicitis (principal)
CPT/HCPCS: 29229; 29230; 50002; 60001; 70002; 80102; 80248; 80298; 82794; 82897; 83338; 83343; 83432; 83587; 83920; 83982; 84038; 90004; 90100; 92235; 92530; 95059